=== PATIENT | female | born 1990 | race Caucasian/White ===

== ENCOUNTER → 2022-07-28 05:03 | Emergency (ER) | payer OTHER ==
[~2022-07-28] VITALS: Ht 152.4 cm; Wt 63.5 kg
[2022-07-28 05:03] VITALS: BP 122/68
--- NOTE | 2022-07-28 05:05 | NUR ---
PATIENT BIB [facility] [employer]. PATIENT EXAMINED BY DR. AYALA. PATIENT MEDICALLY CLEARED AND RELEASED IN CUSTODY IN STABLE CONDITION. ORIGINAL PRE-BOOK FORM GIVEN TO OFFICER LIZZ.
== END ==
LOC: MED 05:03
DX: S70.312A Abrasion, left thigh, initial encounter (principal); S70.311A Abrasion, right thigh, initial encounter; V49.88XA Car occupant (driver) (passenger) injured in other specified transport accidents, initial encounter; Y93.89 Activity, other specified; Y92.89 Other specified places as the place of occurrence of the external cause; Y99.8 Other external cause status
CPT/HCPCS: 99283